=== PATIENT | male | born 1960 | race Caucasian/White ===

== ENCOUNTER 2017-02-15 13:49 | Emergency (ER) | payer SELFPAY ==
[~2017-02-15 13:49] MED LIST: *UNABLE2; LISINOPRIL; ROXICET; XANAX
== END 2017-02-15 15:05 | disposition home or self-care (01) ==
LOC: ER 13:49
DX: M25.561 Pain in right knee (principal); F17.200 Nicotine dependence, unspecified, uncomplicated
CPT/HCPCS: 73560-RT; 99283; A9270-GY